=== PATIENT | female | born 1960 | race Caucasian/White ===

== ENCOUNTER 2017-05-10 18:14 | Observation (INO) | payer MEDICARE ==
[~2017-05-10] VITALS: Ht 162.6 cm; Wt 68.5 kg
[2017-05-10 18:54] LABS: BASOPHILS ABSOLUTE AUTO 0.03 K/mm3 (0.00-0.23); BASOPHILS PERCENT AUTO 1 % (0-2); EOSINOPHILS ABSOLUTE AUTO 0.15 K/mm3 (0.00-0.68); EOSINOPHILS PERCENT AUTO 3 % (0-6); Hematocrit 44.6 % (33.0-51.0); Hemoglobin 15.2 g/dL (11.5-16.0); IMMATURE GRAN PERCENT AUTO 0 % (0-1); LYMPHOCYTES ABSOLUTE AUTO 2.52 K/mm3 (0.84-5.20); LYMPHOCYTES PERCENT AUTO 45 % (21-46); MONOCYTES ABSOLUTE AUTO 0.44 K/mm3 (0.16-1.47); MONOCYTES PERCENT AUTO 8 % (4-13); Mean Corpuscular HGB 30.8 pg (26.0-34.0); Mean Corpuscular HGB Conc 34.1 g/dL (31.5-36.5); Mean Corpuscular Volume 90 fL (80-100); Mean Platelet Volume 9.3 fL (9.1-12.4); NEUTROPHILS ABSOLUTE AUTO 2.52 K/mm3 (1.96-9.15); NEUTROPHILS PERCENT AUTO 45 % (41-73); Platelet Count 228 K/mm3 (150-400); RDW Coefficient Variation 12.7 % (11.7-14.2); RDW Standard Deviation 41.7 fL (35.1-46.3); Red Blood Cell Count 4.94 M/mm3 (3.80-5.20); White Blood Cell Count 5.66 K/mm3 (4.00-11.30)
[2017-05-10 19:12] LABS: Alanine Aminotransfer (ALT/SGP 23 U/L (12-78); Alk Phos 103 U/L (50-136); Anion Gap 7 mmol/L (6-16); Aspartate Aminotrans (AST/SGOT 20 U/L (12-37); Bilirubin, Total 0.4 mg/dL (0.1-1.0); Blood Urea Nitrogen 13 mg/dL (8-24); Bun/Creatinine Ratio 17.8 (12.0-20.0); CO2, Blood 29 mmol/L (21-32); Calcium, Blood 9.6 mg/dL (8.5-10.1); Chloride, Blood 102 mmol/L (98-108); Creatinine, Blood 0.73 mg/dL (0.40-1.00); Glomerular Filtration Rate >60 (60-); Glucose, Blood 122 mg/dL (70-99); Potassium, Blood 3.3 mmol/L (3.5-5.5); Sodium, Blood 138 mmol/L (136-145)
[2017-05-10 19:39] LABS: Troponin I <0.015 ng/mL (0.000-0.040)
[2017-05-10] MEDS ORDERED: OMEG1CAP30 PO (23:32)
[2017-05-10] MEDS ORDERED: CLON2 PO (23:32)
[2017-05-10] MEDS ORDERED: ASPI81CH PO (23:32)
[2017-05-10] MEDS ORDERED: GABA300 PO (23:32)
[2017-05-10] MEDS ORDERED: BUPR75 (23:33)
[2017-05-11] MEDS ORDERED: OMEG1CAP30 PO (00:50)
[2017-05-11] MEDS ORDERED: ACET500 PO (00:53)
--- NOTE | 2017-05-11 01:03 | NUR ---
mrsa spinal fusion and had to cages in spine and had picc line for months
[2017-05-11 03:05] LABS: Troponin I <0.015 ng/mL (0.000-0.040)
--- NOTE | 2017-05-11 04:00 | NUR ---
05/11/17 admitted from the ER with any complaints from left arm numbness to chest pain that has stopped , nausea that has subsided, low K and K rider is infusing at this time. sleeping at internvals when left alone
--- NOTE | 2017-05-11 04:17 | NUR ---
05/11/17 0415 admits to using pot every evening for pain control
[2017-05-11 10:16] LABS: Hematocrit 41.6 % (33.0-51.0); Mean Corpuscular HGB 30.4 pg (26.0-34.0); Mean Corpuscular HGB Conc 33.7 g/dL (31.5-36.5); Mean Corpuscular Volume 90 fL (80-100); Platelet Count 191 K/mm3 (150-400); RDW Coefficient Variation 12.7 % (11.7-14.2); RDW Standard Deviation 41.8 fL (35.1-46.3); White Blood Cell Count 4.67 K/mm3 (4.00-11.30)
[2017-05-11 11:00] LABS: Alanine Aminotransfer (ALT/SGP 21 U/L (12-78); Albumin, Blood 3.5 g/dL (3.4-5.0); Alk Phos 93 U/L (50-136); Anion Gap 6 mmol/L (6-16); Aspartate Aminotrans (AST/SGOT 18 U/L (12-37); Bilirubin, Total 0.5 mg/dL (0.1-1.0); Blood Urea Nitrogen 11 mg/dL (8-24); Bun/Creatinine Ratio 15.4 (12.0-20.0); CO2, Blood 28 mmol/L (21-32); Chloride, Blood 104 mmol/L (98-108); Creatinine, Blood 0.71 mg/dL (0.40-1.00); Globulin, Blood 3.6 g/dL (2.2-4.0); Glomerular Filtration Rate >60 (60-); Glucose, Blood 99 mg/dL (70-99); Potassium, Blood 4.1 mmol/L (3.5-5.5); Sodium, Blood 138 mmol/L (136-145); Total Protein, Blood 7.1 g/dL (6.4-8.2); Troponin I <0.015 ng/mL (0.000-0.040)
[2017-05-11 11:02] LABS: CHOL/HDL RATIO 15.7; Cholesterol 564 mg/dL (50-200); HDL Cholesterol 36 mg/dL (>39); LDL/HDL RATIO 13.9; Low Density Lipoprotein Chol 500 mg/dL (0-110); Triglycerides 142 mg/dL (30-160); Very Low Density Lipoprot Chol 28 mg/dL (6-32)
[2017-05-11 13:17] LABS: BASOPHILS ABSOLUTE MAN 0.04 K/mm3 (0.00-0.23); BASOPHILS PERCENT MAN 1 % (0-2); EOSINOPHILS ABSOLUTE MAN 0.23 K/mm3 (0.00-0.68); EOSINOPHILS PERCENT MAN 5 % (0-6); LYMPHOCYTES PERCENT MAN 43 % (21-46); MONOCYTES ABSOLUTE MAN 0.28 K/mm3 (0.16-1.47); MONOCYTES PERCENT MAN 6 % (4-13); SEG NEUTROPHILS PERCENT MAN 45 % (41-73); TOTAL CELLS COUNTED 100
--- NOTE | 2017-05-11 17:09 | NUR ---
SHIFT SUMMARY PT COMPLETED FIRST HALF OF STRESS TEST THIS AFTERNOON, WILL COMPLETE IN THE AM, WILL BE NPO AFTER MIDNIGHT. PT DENIES FURTHER CHEST PAIN. DID C/O TINGLING TO LUE ONCE THIS SHIFT, RELIEVED WITH REPOSITIONING. PT IS PAINFUL IN NECK AND LEFT SHOULDER, MEDICATED WITH PRN PAIN MEDS X2 THIS SHIFT. VSS, WILL CONTINUE TO MONITOR.
--- NOTE | 2017-05-12 06:28 | NUR ---
05/12/17 0630 shift summary required pain meds times one.. then she said her shoulder still hurt so we put an egg creat matress on her bed and she slept well the rest of the night.. wasnpo for second phase of stress test
--- NOTE | 2017-05-12 17:00 | NUR ---
Shift summary Patient to
--- NOTE | 2017-05-12 18:14 | NUR ---
Shift summary Patient scheduled to have an angiogram tomorrow. Patient has been NSR on tele. Pain controlled with Tylenol and Fentanyl. VS WNL. Afebrile. Patient had part two of stress test done today. Call light within patient reach.
--- NOTE | 2017-05-12 23:46 | NUR ---
05/12/17 2100 refused 80 mg of statin drug would only take 40mg as yesterday
--- NOTE | 2017-05-13 05:27 | NUR ---
05/23/17 0515 shift summary. still c\o right shoulder pain requiring fentanyl 50 twice this shift with tylenol. appears to be anxious about today heart cath . npo 2400 except meds. i dont know when the procedure is so iv fluid were not started.. ekg is completed and tele is NSR.
--- NOTE | 2017-05-13 09:30 | NUR ---
PT NPO X MEDS THIS AM FOR ANGIOGRAM. [facility] HERE TO PICK PT UP APPROX 0915. REPORTING ANXIETY ABOUT PROCEDURE BUT ALSO EXPRESSING EXCITMENT ABOUT UPCOMING WEDDING. INDEPENDENT IN ROOM. STATED L ARM AND ESPECIALLY SHOULDER AND CLAVICLE AREA PAINFUL WITH NUMBNESS AND TINGLING.
[2017-05-13] MEDS ORDERED: EZET10 PO (12:43)
[2017-05-13] MEDS ORDERED: ATOR80 PO (12:43)
[2017-05-13] MEDS ORDERED: NITR.4SL SL (12:45)
[2017-05-13] MEDS ORDERED: PANT40 PO (12:47)
[2017-05-13] MEDS ORDERED: UBID100 PO (12:48)
--- NOTE | 2017-05-13 21:03 | NUR ---
PT DISCHARGED PT SENT HOME, PT IN STABLE, VSS, PT IN NO PAIN, PT TR SITE WNL, PT RECOVERD WNL, PT EDUCATED ON DISCHARGE INSTRUCTIONS, PT TOLERATED AMBULATION
[2018-10-19] MEDS ORDERED: CLON2 PO (08:11)
[2018-10-19] MEDS ORDERED: NITR.4SL SL (08:11)
[2018-10-19] MEDS ORDERED: ACET500 PO (08:11)
[2018-10-19] MEDS ORDERED: OMEG1CAP30 PO (08:11)
[2018-10-19] MEDS ORDERED: GABA800 PO (08:12)
[2018-10-19] MEDS ORDERED: SUBOXONE 4 MG-1 EACH SL (08:12)
[2018-10-19] MEDS ORDERED: EZET10 PO (08:12)
[2018-10-19] MEDS ORDERED: PANT40 PO (08:12)
== END 2017-05-13 19:51 | disposition home or self-care (01) ==
LOC: ER 18:14 → MEDS 18:15 → ER 18:15 → MEDS 18:15 → ER 18:16 → PCU 18:17 → MEDS 18:17 → PCU 05-13 09:25 → MEDS 05-13 09:25 → PCU 05-13 09:25
PROVIDERS: Internal Medicine; Physician Assistant Medical; ADMIT Internal Medicine
DX: R07.9 Chest pain, unspecified (principal); E78.5 Hyperlipidemia, unspecified; I25.10 Atherosclerotic heart disease of native coronary artery without angina pectoris; R94.39 Abnormal result of other cardiovascular function study; E87.6 Hypokalemia; M79.7 Fibromyalgia; K21.9 Gastro-esophageal reflux disease without esophagitis; Z87.891 Personal history of nicotine dependence; Z83.42 Family history of familial hypercholesterolemia; Z79.82 Long term (current) use of aspirin; Z79.899 Other long term (current) drug therapy; Z88.5 Allergy status to narcotic agent; Z98.890 Other specified postprocedural states
CPT/HCPCS: 36415; 71020; 78452; 80053; 80061; 83690; 83880; 84484; 85007; 85025; 85027; 93005; 93010; 93017; 93454; 96365; 96366; 96372; 96375; 96376; 99152; 99153; 99285; A9500; C1769; C1894; G0378; J0280; J1644; J1650; J2001; J2250; J2785; J3010; J3480; J7030; J7050; Q9967

== ENCOUNTER 2017-09-09 13:21 | Emergency (ER) | payer MEDICARE ==
[~2017-09-09] VITALS: Ht 165.1 cm; Wt 64.9 kg
[~2017-09-09 13:21] MED LIST: ACET500 PO; ASPI81CH PO; ATOR80 PO; BUPR75; CLON2 PO; EZET10 PO; GABA300 PO; NITR.4SL SL; OMEG1CAP30 PO; PANT40 PO; UBID100 PO
[2017-09-09] MEDS ORDERED: PRALUENT P150 MG/1 M SQ (14:07)
[2017-09-09 14:51] LABS: BASOPHILS ABSOLUTE AUTO 0.03 K/mm3 (0.00-0.23); BASOPHILS PERCENT AUTO 1 % (0-2); EOSINOPHILS ABSOLUTE AUTO 0.26 K/mm3 (0.00-0.68); EOSINOPHILS PERCENT AUTO 4 % (0-6); Hemoglobin 13.9 g/dL (11.5-16.0); IMMATURE GRAN ABSOLUTE AUTO 0.01 K/mm3 (0.00-0.10); IMMATURE GRAN PERCENT AUTO 0 % (0-1); LYMPHOCYTES ABSOLUTE AUTO 2.56 K/mm3 (0.84-5.20); LYMPHOCYTES PERCENT AUTO 42 % (21-46); MONOCYTES ABSOLUTE AUTO 0.43 K/mm3 (0.16-1.47); MONOCYTES PERCENT AUTO 7 % (4-13); Mean Corpuscular HGB 30.3 pg (26.0-34.0); Mean Corpuscular HGB Conc 32.3 g/dL (31.5-36.5); Mean Corpuscular Volume 94 fL (80-100); Mean Platelet Volume 9.1 fL (9.1-12.4); NEUTROPHILS ABSOLUTE AUTO 2.75 K/mm3 (1.96-9.15); NEUTROPHILS PERCENT AUTO 46 % (41-73); Platelet Count 235 K/mm3 (150-400); RDW Coefficient Variation 12.8 % (11.7-14.2); RDW Standard Deviation 44.4 fL (35.1-46.3); Red Blood Cell Count 4.58 M/mm3 (3.80-5.20); White Blood Cell Count 6.04 K/mm3 (4.00-11.30)
[2017-09-09 15:19] LABS: Alanine Aminotransfer (ALT/SGP 38 U/L (12-78); Albumin, Blood 3.6 g/dL (3.4-5.0); Albumin/Globulin Ratio 0.9 (0.8-1.8); Alk Phos 91 U/L (50-136); Anion Gap 6 mmol/L (6-16); Aspartate Aminotrans (AST/SGOT 26 U/L (12-37); Bilirubin, Total 0.4 mg/dL (0.1-1.0); Blood Urea Nitrogen 18 mg/dL (8-24); CO2, Blood 29 mmol/L (21-32); Calcium, Blood 8.8 mg/dL (8.5-10.1); Chloride, Blood 104 mmol/L (98-108); Creatinine, Blood 0.69 mg/dL (0.40-1.00); Globulin, Blood 4.1 g/dL (2.2-4.0); Glomerular Filtration Rate >60 (60-); Glucose, Blood 90 mg/dL (70-99); Potassium, Blood 4.1 mmol/L (3.5-5.5); Sodium, Blood 139 mmol/L (136-145); Total Protein, Blood 7.7 g/dL (6.4-8.2); Troponin I <0.015 ng/mL (0.000-0.040)
== END 2017-09-09 16:35 | disposition home or self-care (01) ==
LOC: ER 13:21
PROVIDERS: Emergency Medicine
DX: R07.89 Other chest pain (principal); Z88.5 Allergy status to narcotic agent; Z79.899 Other long term (current) drug therapy; Z79.82 Long term (current) use of aspirin; F17.210 Nicotine dependence, cigarettes, uncomplicated
CPT/HCPCS: 36415; 80053; 84484; 85025; 93005; 93010; 99283

== ENCOUNTER 2018-01-23 23:06 | Emergency (ER) | payer MEDICARE ==
[~2018-01-23] VITALS: Ht 165.1 cm; Wt 61.2 kg
[~2018-01-23 23:06] MED LIST changes: +PRALUENT P150 MG/1 M SQ
[2018-01-23] MEDS ORDERED: BUPRENORPHINE HC8 MG SL (23:17)
[2018-01-23] MEDS ORDERED: Klonopin0.5 MG PO (23:43)
== END 2018-01-24 00:20 | disposition home or self-care (01) ==
LOC: ER 23:06
DX: F41.1 Generalized anxiety disorder (principal); Z88.5 Allergy status to narcotic agent; Z79.899 Other long term (current) drug therapy; Z79.82 Long term (current) use of aspirin; F17.210 Nicotine dependence, cigarettes, uncomplicated
CPT/HCPCS: 99283

== ENCOUNTER 2018-11-08 10:20 | Day surgery (SDC) | payer MEDICARE ==
[~2018-11-08] VITALS: Ht 167.6 cm; Wt 72.8 kg
[~2018-11-08 10:20] MED LIST changes: +BUPRENORPHINE HC8 MG SL; +GABA800 PO; +Klonopin0.5 MG PO; +SUBOXONE 4 MG-1 EACH SL
[2018-11-08] MEDS ORDERED: PRALUENT P75 MG/1 ML SC (10:40)
== END 2018-11-08 11:32 | disposition home or self-care (01) ==
LOC: ORSCSDS 10:20
PROVIDERS: Surgery
PROC: 0DJD8ZZ Inspection of Lower Intestinal Tract, Via Natural or Artificial Opening Endoscopic (ICD-10-PCS; principal; 2018-11-08 11:15)
DX: Z12.11 Encounter for screening for malignant neoplasm of colon (principal); F32.9 Major depressive disorder, single episode, unspecified; E78.5 Hyperlipidemia, unspecified; M79.7 Fibromyalgia; I25.10 Atherosclerotic heart disease of native coronary artery without angina pectoris; Z79.899 Other long term (current) drug therapy
CPT/HCPCS: J2704; J7120